=== PATIENT | female | born 1970 | race Native Hawaiian/Other Pacific Islander ===

== ENCOUNTER 2017-05-19 22:23 | Observation (INO) | payer MEDICAID, OTHER ==
--- NOTE | 2017-05-19 22:58 | ED PDOC ---
Arrival/HPI <Leif Arthur - Last Filed: 05/20/17 00:50> <Barndyn Vázquez - Last Filed: 05/20/17 01:14> - General Chief Complaint: Chest Pain Time Seen by Provider: 05/19/17 22:24 - History of Present Illness Narrative History of Present Illness (Text): 47 year old obese female with a past medical history of borderline diabetes and untreated hypertension who presents with 1 day of left sided chest pain and radiation down the left arm. She states at 1:00 PM she was sitting on the couch and developed some sharp chest pain that somewhat resolved after taking 3 baby aspirins; however, an hour or so later the chest pain became more diffuse and heavy-like with radiation down the left arm with associated dyspnea, no nausea, vomiting, or diaphoresis. She further admits to occasions of shortness of breath lying flat. She admits to a family history significant for high blood pressure. She denies any tobacco use or illicit drug use, but admits to drinking socially. 05/19/17 22:55 (Brandyn Vázquez) Past Medical History - Provider Review Nursing Documentation Reviewed: Yes - Infectious Disease Hx of Infectious Diseases: None - Tetanus Immunization Tetanus Immunization: Unknown - Past Medical History Past Medical History: No Previous - Cardiac Hx Cardiac Disorders: No - Pulmonary Hx Respiratory Disorders: No - Neurological Hx Neurological Disorder: No - HEENT Hx HEENT Disorder: No - Renal Hx Renal Disorder: No - Endocrine/Metabolic Hx Endocrine Disorders: No (GESTATIONAL DIABETES) - Hematological/Oncological Hx Blood Transfusions: No Hx Blood Transfusion Reaction: No - Integumentary Hx Dermatological Disorder: Yes (ACNE) - Musculoskeletal/Rheumatological Hx Musculoskeletal Disorders: Yes (RIGHT KNEE SURGERY TORN MENISCUS) - Gastrointestinal Hx Gastrointestinal Disorders: Yes (TONSILLECTOMY) - Genitourinary/Gynecological Hx Genitourinary Disorders: No - Psychiatric Hx Emotional Abuse: No Hx Physical Abuse: No Hx Substance Use: No - Past Surgical History Past Surgical History: Non-Contributing - Surgical History Hx Orthopedic Surgery: Yes (RIGHT TORN MENISCUS) - Anesthesia Hx Anesthesia Reactions: No Hx Malignant Hyperthermia: No - Suicidal Assessment Feels Threatened In Home Enviroment: No <Brandyn Vázquez - Last Filed: 05/20/17 01:14> Family/Social History - Physician Review Nursing Documentation Reviewed: Yes Family/Social History: Hypertension Smoking Status: Never Smoked Hx Alcohol Use: No Hx Substance Use: No <Brandyn Vázquez - Last Filed: 05/20/17 01:14> Allergies/Home Meds <JersonLeif - Last Filed: 05/20/17 00:50> <Brandyn Vázquez - Last Filed: 05/20/17 01:14> Allergies/Adverse Reactions: Allergies No Known Allergies Allergy (Verified 10/07/13 22:49) Home Medications: Home Meds Medication Instructions Recorded Confirmed No Known Home Med [No Known Home 10/07/13 05/19/17 Med] Review of Systems - Review of Systems Constitutional: Normal. absent: Fatigue, Weight Change, Fevers Eyes: absent: Vision Changes, Photophobia, Eye Pain ENT: absent: Hearing Changes, Tinnitus Respiratory: SOB. absent: Cough, Sputum, Wheezing Cardiovascular: Chest Pain, Orthopnea. absent: Palpitations, Edema, Calf Pain, [place] Gastrointestinal: Normal. absent: Abdominal Pain, Nausea, Vomiting Genitourinary Female: absent: Dysuria, Frequency, Hematuria Musculoskeletal: absent: Back Pain, Neck Pain, Joint Swelling Skin: absent: Rash, Skin Lesions, Laceration Neurological: absent: Headache, Dizziness, Focal Weakness Endocrine: absent: Diaphoresis, Polydipsia Hemo/Lymphatic: absent: Easy Bleeding, Easy Bruising Psychiatric: absent: Anxiety, Depression <Brandyn Vázquez - Last Filed: 05/20/17 01:14> Physical Exam Temperature: Afebrile Blood Pressure: Hypertensive Pulse: Regular Respiratory Rate: Normal Appearance: Positive for: Well-Appearing, Non-Toxic Pain Distress: Mild Mental Status: Positive for: Alert and Oriented X 3 - Systems Exam Head: Present: Atraumatic, Normocephalic Pupils: Present: PERRL Extroacular Muscles: Present: EOMI Conjunctiva: Present: Normal Mouth: Present: Moist Mucous Membranes Pharnyx: Present: Normal. No: ERYTHEMA, EXUDATE Neck: Present: Normal Range of Motion. No: JVD, Lymphadenopathy, Bruit Respiratory/Chest: Present: Clear to Auscultation. No: Good Air Exchange, Respiratory Distress, Accessory Muscle Use Cardiovascular: Present: Regular Rate and Rhythm, Murmurs, Normal S1, S2 Abdomen: Present: Normal Bowel Sounds. No: Tenderness, Distention, Peritoneal Signs Back: Present: Normal Inspection. No: CVA Tenderness Upper Extremity: Present: Normal Inspection. No: Cyanosis, Edema Lower Extremity: Present: Normal Inspection. No: Edema, CALF TENDERNESS, Cata' s Sign Neurological: Present: CN II-XII Intact, Speech Normal, Motor Func Grossly Intact Skin: Present: Warm, Dry, Normal Color Psychiatric: Present: Alert, Oriented x 3, Normal Insight <Brandyn Vázquez - Last Filed: 05/20/17 01:14> Vital Signs Temp Pulse Resp BP Pulse Ox 05/19/17 22:55 97.8 F 60 18 137/81 100 Medical Decision Making - RAD Interpretation Drying Machine Back Tender: ED Physician <Leif Arthur - Last Filed: 05/20/17 00:50> <Brandyn Vázquez - Last Filed: 05/20/17 01:14> ED Course and Treatment: Patient was seen and evaluated with the medical center director. Agree with HPI, clinical findings, treatment plan. 05/20/17 00:38 Case d/w medical center director and hospital MD .Accepts to the hospitalist service. (Leif Arthur) CBC, CMP, Cardiac enzymes, EKG were negative for ACS. 05/20/17 00:21 (Brandyn Vázquez) - Lab Interpretations Lab Results: 05/19/17 23:35 05/19/17 23:35 Lab Results 05/19/17 23:35: Sodium 139, Potassium 3.6, Chloride 103, Carbon Dioxide 23, Anion Gap 17, BUN 23 H, Creatinine 0.7, Est GFR ( Amer) > 60, Est GFR ( Non-Af Amer) > 60, Random Glucose 128 H, Calcium 9.1, Total Bilirubin 0.2, AST 23, ALT 21, Alkaline Phosphatase 48, Lactate Dehydrogenase 381, Total Creatine Kinase 100, Troponin I < 0.01, Total Protein 7.5, Albumin 4.1, Globulin 3.4, Albumin/Globulin Ratio 1.2 05/19/17 23:35: WBC 8.4, RBC 4.58, Hgb 10.4 L, Hct 33.0 L, MCV 72.1 L, MCH 22.7 L, MCHC 31.5, RDW 17.0 H, Plt Count 296, MPV 9.2, Gran % 56.0, Lymph % (Auto) 31.3, [place] % (Auto) 6.3 H, Eos % (Auto) 5.6 H, Baso % (Auto) 0.8, Gran # 4.67, Lymph # 2.6, [place] # 0.5, Eos # 0.5, Baso # 0.07 - RAD Interpretation Narrative RAD Interpretations (Text): 05/20/17 00:40 CXR- No acute process (Leif Arthur) Radiology Orders: 05/20/17 00:16 CXR [CHEST PORTABLE] [RAD] Stat - PA / POOL TABLE OPERATOR / Resident Statement MD/DO has reviewed & agrees with the documentation as recorded. MD/DO has examined the patient and agrees with the treatment plan. <Leif Arthur - Last Filed: 05/20/17 00:50> Disposition/Present on Arrival - Present on Arrival Any Indicators Present on Arrival: No History of DVT/PE: No History of Uncontrolled Diabetes: No Urinary Catheter: No History of Decub. Ulcer: No History Surgical Site Infection Following: None - Disposition Have Diagnosis and Disposition been Completed?: Yes Disposition Time: 00:38 Patient Plan: Observation <Leif Arthur - Last Filed: 05/20/17 00:50> - Present on Arrival History of DVT/PE: No History of Uncontrolled Diabetes: No Urinary Catheter: No History of Decub. Ulcer: No History Surgical Site Infection Following: None - Disposition Have Diagnosis and Disposition been Completed?: Yes <Brandyn Vázquez - Last Filed: 05/20/17 01:14> - Disposition Diagnosis: Chest pain Disposition: HOSPITALIZED Condition: GOOD Discharge Instructions (ExitCare): Chest Pain (ED) Forms: [employer] (Bhutanese)
[2017-05-19 23:52] LABS: BASO # 0.07 K/mm3 (0.0-2.0); BASO % 0.8 % (0.0-3.0); EOS # 0.5 (0.0-0.7); EOS % 5.6 % (1.5-5.0); GRAN # 4.67 (1.4-6.5); LYMPH # 2.6 (1.2-3.4); LYMPH % 31.3 % (22.0-35.0); MEAN CELL VOLUME 72.1 fl (80.0-105.0); MEAN CORPUSCULAR HEMOGLOBIN 22.7 pg (25.0-35.0); MEAN CORPUSCULAR HGB CONC 31.5 g/dl (31.0-37.0); MEAN PLATELET VOLUME 9.2 fl (7.0-11.0); MONO # 0.5 (0.1-0.6); MONO % 6.3 % (1.0-6.0); WHITE BLOOD COUNT 8.4 10^3/ul (4.5-11.0)
[2017-05-20 00:06] LABS: ALB/GLOB RATIO 1.2 (1.1-1.8); ALKALINE PHOSPHATASE 48 U/L (38-126); ALT/SGPT 21 U/L (7-56); AST/SGOT 23 U/L (14-36); BILIRUBIN,TOTAL 0.2 mg/dL (0.2-1.3); BLOOD UREA NITROGEN 23 mg/dL (7-21); CALCIUM 9.1 mg/dL (8.4-10.5); CARBON DIOXIDE 23 mmol/L (21-33); CHLORIDE 103 mmol/L (98-107); GFR AFRICAN-AMERICAN > 60; GLUCOSE,RANDOM 128 mg/dL (70-110); POTASSIUM 3.6 mmol/L (3.6-5.0); SODIUM 139 mmol/L (132-148); TOTAL PROTEIN 7.5 g/dL (5.8-8.3)
[2017-05-20 00:19] LABS: TROPONIN I < 0.01 ng/mL
[2017-05-20 04:04] LABS: BASO # 0.06 K/mm3 (0.0-2.0); BASO % 0.7 % (0.0-3.0); EOS # 0.5 (0.0-0.7); GRAN # 4.41 (1.4-6.5); GRAN % 53.6 % (50.0-68.0); HEMATOCRIT 32.2 % (36.0-48.0); LYMPH # 2.7 (1.2-3.4); MEAN CORPUSCULAR HEMOGLOBIN 22.8 pg (25.0-35.0); MEAN CORPUSCULAR HGB CONC 31.7 g/dl (31.0-37.0); MEAN PLATELET VOLUME 8.6 fl (7.0-11.0); MONO # 0.6 (0.1-0.6); MONO % 6.7 % (1.0-6.0); RED CELL DISTRIBUTION WIDTH 16.9 % (11.5-14.5); WHITE BLOOD COUNT 8.2 10^3/ul (4.5-11.0)
[2017-05-20 04:11] VITALS: BMI 34.5
[2017-05-20 04:20] LABS: ALB/GLOB RATIO 1.2 (1.1-1.8); ALKALINE PHOSPHATASE 46 U/L (38-126); AST/SGOT 23 U/L (14-36); BILIRUBIN,TOTAL 0.4 mg/dL (0.2-1.3); BLOOD UREA NITROGEN 20 mg/dL (7-21); CARBON DIOXIDE 24 mmol/L (21-33); CHLORIDE 104 mmol/L (98-107); CHOLESTEROL 104 mg/dL (130-200); GFR AFRICAN-AMERICAN > 60; GLUCOSE,RANDOM 107 mg/dL (70-110); PHOSPHOROUS 4.1 mg/dL (2.5-4.5); TOTAL PROTEIN 7.1 g/dL (5.8-8.3)
[2017-05-20 04:21] LABS: ALT/SGPT 25 U/L (7-56); CALCIUM 8.9 mg/dL (8.4-10.5); MAGNESIUM 1.9 mg/dL (1.7-2.2); SODIUM 138 mmol/L (132-148)
--- NOTE | 2017-05-20 04:34 | CP.PCM.HP ---
<Alejandro Bowens - Last Filed: 05/20/17 04:42> History of Present Illness - History of Present Illness History of Present Illness: H/P For IM - TKS DO, PGY-1 CC: CP HPI: 47 F w no PMHx presents with 9 hour duration of sharp, left-sided, 5/10 chest pain radiating to her shoulder and down her arm, alleviated by laying away from her left side, exacerbated by pressure on the left side of her chest, with no associated symptoms. Patient states the pain was not subsiding, which scared her and her , thus they came to the ER. She states that a brother and her grandfather of AMI's. Pt denies ever having a cath, stress test, or an ECHO. No further complaints. Pt denies f/ch/sob/n/v/d/dysuria/frequency/urgency/hematuria/hematochezia/ hematemesis PSHx: Meniscal repair PMHx: None All: NKDA SocHx: Pt denies tobacco, etoh, illicits Hosp: Abd pain several years ago FamHx: CA, HF, RI Meds: Pt denies ROS: Constitutional: pt denies fever, chills, generalized weakness ENT: pt denies dysphagia, otalgia, hearing deficit, rhinorrhea Eyes: pt denies sudden loss of vision, diplopia, blurred vision MSK: pt denies muscle stiffness, joint pain, extremity cramping Cardio: +see hpi Pulm: pt denies cough, hemoptysis, wheeze GI: pt denies loss of appetite, abdominal pain, constipation, melena, n/v/d : pt denies burning on urination, urinary frequency, hematuria, urinary urgency Neuro: pt denies paresis, paresthesia, dizziness, reis, numbness, tingling Derm: pt denies skin changes, lesions, nail changes Endo: pt denies intolerance to heat/cold, diaphoresis, night sweats, polydipsia Psych: pt denies anxiety, depression, mood changes Present on Admission - Present on Admission Any Indicators Present on Admission: No Past Patient History - Infectious Disease Hx of Infectious Diseases: None - Tetanus Immunizations Tetanus Immunization: Unknown - Past Social History Smoking Status: Never Smoked - CARDIAC Hx Cardiac Disorders: No - PULMONARY Hx Respiratory Disorders: No - NEUROLOGICAL Hx Neurological Disorder: No - HEENT Hx HEENT Problems: No - RENAL Hx Chronic Kidney Disease: No - ENDOCRINE/METABOLIC Hx Endocrine Disorders: Yes Other/Comment: Gestational diabetes - HEMATOLOGICAL/ONCOLOGICAL Hx Blood Disorders: No - INTEGUMENTARY Hx Dermatological Problems: No - MUSCULOSKELETAL/RHEUMATOLOGICAL Hx Musculoskeletal Disorders: Yes Hx Falls: No Other/Comment: Right knee SX. torn meniscus - GASTROINTESTINAL Hx Gastrointestinal Disorders: No - GENITOURINARY/GYNECOLOGICAL Hx Genitourinary Disorders: Yes Hx Urinary Tract Infection: Yes - PSYCHIATRIC Hx Psychophysiologic Disorder: No Hx Substance Use: No - SURGICAL HISTORY Hx Surgeries: Yes Hx Appendectomy: Yes Other/Comment: Right knee SX. torn meniscus, tonsillectomy. - ANESTHESIA Hx Anesthesia Reactions: No Hx Malignant Hyperthermia: No Meds Allergies/Adverse Reactions: Allergies Allergy/AdvReac Type Severity Reaction Status Date / Time No Known Allergies Allergy Verified 10/07/13 22:49 Physical Exam - Additional Findings Additional findings: Phys Exam: VS as below Constitutional: +obese female; a&o x 4, nad Head and Neck: neck supple, no jvd, trachea midline, carotid midline, no cervical/head mass Eyes: ajit, nonicteric sclera, eom intact ENT: auditory acuity grossly intact, throat not congested, no nasal deformity Cardio: +CW pain completely reproducible with moderate palpation of L side of chest; rrr, no m/r/g, no carotid bruit, nml s1, s2 Pulm: no accessory muscle use, equal nml breath sounds bilaterally, ctab Abd: s/nt/nd, nbs x 4 q, no palpable masses Derm: no rashes, no ulcers, no lesions Extr: no edema, no cyanosis, no calf tenderness, no lesions, no varicosities Neuro: cn II-XII grossly intact, ue and le 5/5 muscle strength bilaterally, no los ue, le bilaterally and core Results - Vital Signs Recent Vital Signs: Last Vital Signs Temp 97.9 F 05/20/17 02:49 Pulse 66 05/20/17 02:49 Resp 20 05/20/17 02:49 BP 121/67 05/20/17 02:49 Pulse Ox 98 05/20/17 01:37 - Labs Result Diagrams: 05/20/17 03:45 05/20/17 03:45 Labs: Laboratory Results - last 24 hr 05/19/17 05/19/17 05/20/17 23:35 23:35 03:45 WBC 8.4 8.2 RBC 4.58 4.47 Hgb 10.4 L 10.2 L Hct 33.0 L 32.2 L MCV 72.1 L 72.0 L MCH 22.7 L 22.8 L MCHC 31.5 31.7 RDW 17.0 H 16.9 H Plt Count 296 257 MPV 9.2 8.6 Gran % 56.0 53.6 Lymph % (Auto) 31.3 33.0 [place] % (Auto) 6.3 H 6.7 H Eos % (Auto) 5.6 H 6.0 H Baso % (Auto) 0.8 0.7 Gran # 4.67 4.41 Lymph # 2.6 2.7 [place] # 0.5 0.6 Eos # 0.5 0.5 Baso # 0.07 0.06 Sodium 139 Potassium 3.6 Chloride 103 Carbon Dioxide 23 Anion Gap 17 BUN 23 H Creatinine 0.7 Est GFR ( Amer) > 60 Est GFR (Non-Af Amer) > 60 Random Glucose 128 H Calcium 9.1 Phosphorus Magnesium Total Bilirubin 0.2 AST 23 ALT 21 Alkaline Phosphatase 48 Lactate Dehydrogenase 381 Total Creatine Kinase 100 Troponin I < 0.01 Total Protein 7.5 Albumin 4.1 Globulin 3.4 Albumin/Globulin Ratio 1.2 Triglycerides Cholesterol HDL Cholesterol 05/20/17 03:45 WBC RBC Hgb Hct MCV MCH MCHC RDW Plt Count MPV Gran % Lymph % (Auto) [place] % (Auto) Eos % (Auto) Baso % (Auto) Gran # Lymph # [place] # Eos # Baso # Sodium 138 Potassium 4.0 Chloride 104 Carbon Dioxide 24 Anion Gap 14 BUN 20 Creatinine 0.8 Est GFR ( Amer) > 60 Est GFR (Non-Af Amer) > 60 Random Glucose 107 Calcium 8.9 Phosphorus 4.1 Magnesium 1.9 Total Bilirubin 0.4 AST 23 ALT 25 Alkaline Phosphatase 46 Lactate Dehydrogenase 368 Total Creatine Kinase 92 Troponin I Total Protein 7.1 Albumin 3.9 Globulin 3.2 Albumin/Globulin Ratio 1.2 Triglycerides 85 Cholesterol 104 L HDL Cholesterol 37 Assessment & Plan - Assessment and Plan (Free Text) Assessment: A/P 47 F with mechanically reproducible chest pain Chest Pain likely 2/2 MSK Pain. R/o ACS - TSH, Lipid profile, A1C - Cardiac ISOs, EKGs - trend - AM Labs: CBC, CMP, Mg, Phos - ASA 81 Daily - Toradol for pain stat Obesity - Advise on weight loss Hx/O GUILLERMO - Pt states that she used to have a CPAP machine, but threw it out - Advised on importance of restarting CPAP PPXS - SCD/Protonix - Woody Score of 1 <Merle Tao - Last Filed: 05/20/17 06:03> Results - Vital Signs Recent Vital Signs: Last Vital Signs Temp 97.9 F 05/20/17 02:49 Pulse 57 L 05/20/17 05:42 Resp 20 05/20/17 02:49 BP 121/67 05/20/17 02:49 Pulse Ox 98 05/20/17 01:37 - Labs Result Diagrams: 05/20/17 03:45 05/20/17 03:45 Labs: Laboratory Results - last 24 hr 05/20/17 05/20/17 05/20/17 03:45 03:45 03:45 WBC 8.2 RBC 4.47 Hgb 10.2 L Hct 32.2 L MCV 72.0 L MCH 22.8 L MCHC 31.7 RDW 16.9 H Plt Count 257 MPV 8.6 Gran % 53.6 Lymph % (Auto) 33.0 [place] % (Auto) 6.7 H Eos % (Auto) 6.0 H Baso % (Auto) 0.7 Gran # 4.41 Lymph # 2.7 [place] # 0.6 Eos # 0.5 Baso # 0.06 Sodium 138 Potassium 4.0 Chloride 104 Carbon Dioxide 24 Anion Gap 14 BUN 20 Creatinine 0.8 Est GFR ( Amer) > 60 Est GFR (Non-Af Amer) > 60 Random Glucose 107 Calcium 8.9 Phosphorus 4.1 Magnesium 1.9 Total Bilirubin 0.4 AST 23 ALT 25 Alkaline Phosphatase 46 Lactate Dehydrogenase 368 Total Creatine Kinase 92 Troponin I < 0.01 Total Protein 7.1 Albumin 3.9 Globulin 3.2 Albumin/Globulin Ratio 1.2 Triglycerides 85 Cholesterol 104 L LDL Cholesterol Direct 58 HDL Cholesterol 37 TSH 3rd Generation 2.94 Attending/Attestation - Attestation I have personally seen and examined this patient.: Yes I have fully participated in the care of the patient.: Yes I have reviewed all pertinent clinical information: Yes Notes (Text): 05/20/17 05:58 Patient was seen when she was in ER. Agree with history, physical examination, assessment and plan. Following are my impressions:Chest pain, history GUILLERMO, obesity, history borderline DM, history appendectomy, history of surgery for right knee meniscus, history of tonsillectomy, history of smoking , history of headache, history of seasonal allergies, family history of CHF, (MGM),RI(brother at age 30 years),ovarian cancer(mother), brain cancer(Sister), hypertension(multiple family members.
[2017-05-20 04:41] LABS: TROPONIN I < 0.01 ng/mL
[2017-05-20] MEDS: Sodium Chloride 0.9% 500 ML IV SCH ×2 (05:58→12:52)
[2017-05-20] MEDS ORDERED: Pantoprazole 40 mg EC Tab PO SCH (06:00)
[2017-05-20 06:16] VITALS: O2SAT 99
[2017-05-20 08:48] LABS: TROPONIN I < 0.01 ng/mL
[2017-05-20 12:30] VITALS: BP 114/75; RESP 18; TEMP 98.1
--- NOTE | 2017-05-20 13:07 | RAD ---
HISTORY: chest pain COMPARISON: 11/14/2015 FINDINGS: LUNGS: Low-normal lung volumes -not previously present The right hilar soft tissue fullness currently noted may be due to crowding of vessels given the shallow lung volumes. Intrinsic right hilar pathology not excluded PLEURA: No significant pleural effusion identified, no pneumothorax apparent. CARDIOVASCULAR: Mild cardiomegaly - left ventricular mild enlargement inferred OSSEOUS STRUCTURES: No significant abnormalities. VISUALIZED UPPER ABDOMEN: Normal. OTHER FINDINGS: None. IMPRESSION: No consolidative infiltrate . Interval increased soft tissue right hilar fullness in indeterminate and possibly due to crowding with shallow current lung volumes. Consider repeat PA chest x-ray with greater inspiration or CT chest with contrast enhancement
--- NOTE | 2017-05-20 13:17 | CON ---
DATE: 05/20/2017 REQUESTING PHYSICIAN: Dr. Dunn. REASON FOR CONSULTATION: Chest pain. HISTORY OF PRESENT ILLNESS: This is a 47-year-old woman who presented to the emergency room last evening with left-sided chest discomfort. She describes it as a sharp sensation which radiated down her left arm. She was sitting and resting at that time. Her pain improved with the change in position. There is a family history of premature heart disease and she became concerned and presented to the emergency room. Her initial blood work and electrocardiogram were unremarkable. She denies any prior cardiac history. She is not hypertensive or diabetic. She does not smoke. There was a family history of premature heart disease. She states that her brother suffered myocardial infarction at the age of 30 and her grand father also had myocardial infarction at young age. She believes her cholesterol is normal. She is not diabetic. PAST MEDICAL HISTORY: Her past history is notable for prior arthroscopic knee surgery. She is otherwise healthy. She had an appendectomy and tonsillectomy in the past. MEDICATIONS: None. ALLERGIES: NONE. SOCIAL HISTORY: She does not smoke or drink. FAMILY HISTORY: Mother from cancer. Father from gunshot wound. Rest of the family history is as noted. REVIEW OF SYSTEMS: A 10-point review of systems is otherwise unremarkable. PHYSICAL EXAMINATION GENERAL: She is a middle aged woman who appears comfortable at the present time. VITAL SIGNS: Her blood pressure is 114/70 with pulse of 60 in sinus, respirations are 14. She is afebrile. HEENT: Normocephalic and atraumatic. NECK: No JVD noted. CHEST: Clear to auscultation and percussion. HEART: PMI in normal position. No pathological gallops noted. ABDOMEN: Soft and nontender. Normoactive bowel sounds. EXTREMITIES: No clubbing, cyanosis, or edema. SKIN: Warm and dry. PSYCHIATRIC: Normal mood and affect. NEUROLOGIC: Alert and oriented x3. No gross motor or sensory deficits appreciable. LABORATORY DATA: Three sets of cardiac enzymes are negative. Potassium 4.0, BUN and creatinine 20 and 0.8. White count 8.2, hemoglobin and hematocrit 10.2 and 32.2 with an MCV of 72, platelet count is 257,000. Electrocardiogram reveals sinus rhythm with no acute abnormalities. Chest x-ray reveals normal cardiac silhouette with clear lung inman. IMPRESSION: 1. Chest pain, appears typical and more likely musculoskeletal rather than cardiac in nature. 2. Microcytic anemia, possible iron deficiency, should have further evaluation. 3. Family history of premature heart disease, but no clear evidence of heart disease herself. RECOMMENDATIONS: From cardiac standpoint, she appears stable for discharge home at this time. Now, the patient's stress test should be considered. Thank you for this consultation. We will be happy to see in the future if needed. Alex Lopez MD
--- NOTE | 2017-05-20 13:40 | CP.PCM.DIS ---
<Eliu Duarte - Last Filed: 05/20/17 17:36> Provider - Provider Date of Admission: 05/20/17 00:39 Attending physician: Puneet Medeiros MD Time Spent in preparation of Discharge (in minutes): 45 Hospital Course - Lab Results Lab Results: Most Recent Lab Values WBC 8.2 10^3/ul (4.5-11.0) 05/20/17 03:45 RBC 4.47 10^6/uL (3.5-6.1) 05/20/17 03:45 Hgb 10.2 g/dL (12.0-16.0) L 05/20/17 03:45 Hct 32.2 % (36.0-48.0) L 05/20/17 03:45 MCV 72.0 fl (80.0-105.0) L 05/20/17 03:45 MCH 22.8 pg (25.0-35.0) L 05/20/17 03:45 MCHC 31.7 g/dl (31.0-37.0) 05/20/17 03:45 RDW 16.9 % (11.5-14.5) H 05/20/17 03:45 Plt Count 257 10^3/uL (120.0-450.0) 05/20/17 03:45 MPV 8.6 fl (7.0-11.0) 05/20/17 03:45 Gran % 53.6 % (50.0-68.0) 05/20/17 03:45 Lymph % (Auto) 33.0 % (22.0-35.0) 05/20/17 03:45 [place] % (Auto) 6.7 % (1.0-6.0) H 05/20/17 03:45 Eos % (Auto) 6.0 % (1.5-5.0) H 05/20/17 03:45 Baso % (Auto) 0.7 % (0.0-3.0) 05/20/17 03:45 Gran # 4.41 (1.4-6.5) 05/20/17 03:45 Lymph # 2.7 (1.2-3.4) 05/20/17 03:45 [place] # 0.6 (0.1-0.6) 05/20/17 03:45 Eos # 0.5 (0.0-0.7) 05/20/17 03:45 Baso # 0.06 K/mm3 (0.0-2.0) 05/20/17 03:45 Sodium 138 mmol/L (132-148) 05/20/17 03:45 Potassium 4.0 mmol/L (3.6-5.0) 05/20/17 03:45 Chloride 104 mmol/L (98-107) 05/20/17 03:45 Carbon Dioxide 24 mmol/L (21-33) 05/20/17 03:45 Anion Gap 14 (10-20) 05/20/17 03:45 BUN 20 mg/dL (7-21) 05/20/17 03:45 Creatinine 0.8 mg/dL (0.7-1.2) 05/20/17 03:45 Est GFR ( Amer) > 60 05/20/17 03:45 Est GFR (Non-Af Amer) > 60 05/20/17 03:45 Random Glucose 107 mg/dL (70-110) 05/20/17 03:45 Hemoglobin A1c 6.0 % (4.2-6.5) 05/20/17 03:45 Calcium 8.9 mg/dL (8.4-10.5) 05/20/17 03:45 Phosphorus 4.1 mg/dL (2.5-4.5) 05/20/17 03:45 Magnesium 1.9 mg/dL (1.7-2.2) 05/20/17 03:45 Total Bilirubin 0.4 mg/dL (0.2-1.3) 05/20/17 03:45 AST 23 U/L (14-36) 05/20/17 03:45 ALT 25 U/L (7-56) 05/20/17 03:45 Alkaline Phosphatase 46 U/L (38-126) 05/20/17 03:45 Lactate Dehydrogenase 312 U/L (333-699) L 05/20/17 08:20 Total Creatine Kinase 87 U/L (35-230) 05/20/17 08:20 Troponin I < 0.01 ng/mL 05/20/17 08:20 Total Protein 7.1 g/dL (5.8-8.3) 05/20/17 03:45 Albumin 3.9 g/dL (3.0-4.8) 05/20/17 03:45 Globulin 3.2 gm/dL 05/20/17 03:45 Albumin/Globulin Ratio 1.2 (1.1-1.8) 05/20/17 03:45 Triglycerides 85 mg/dL (35-160) 05/20/17 03:45 Cholesterol 104 mg/dL (130-200) L 05/20/17 03:45 LDL Cholesterol Direct 58 mg/dL (0-129) 05/20/17 03:45 HDL Cholesterol 37 mg/dL (29-60) 05/20/17 03:45 TSH 3rd Generation 2.94 mIU/mL (0.46-4.68) 05/20/17 03:45 - Hospital Course Hospital Course: 47 F w no PMHx presents with 9 hour duration of sharp, left-sided, 5/10 chest pain radiating to her shoulder and down her arm, alleviated by laying away from her left side, exacerbated by pressure on the left side of her chest, with no associated symptoms. Patient states the pain was not subsiding, which scared her and her , thus they came to the ER. She states that a brother and her grandfather of AMI's. Pt denies ever having a cath, stress test, or an ECHO. The patient was admitted to rule out acute coronary syndrome. While admitted the patient had an EKG done that showed normal sinus rhythm, no axis deviation, and no acute ST-T changes. The patient was also seen by Cardiology while admitted. The patient had labs drawn including serial troponins.and lipid panel. The lipid panel showed cholesterol of 104, LDL 58, and HDL 37. The patient's lab work came back and showed her troponins were negative times 3. The patient was seen this morning no longer complaining of chest pain and in no acute distress. The patient was medically cleared to go home with the instructions to follow up with pmd and to have a outpatient stress test within one week of discharge. Discharge Exam - Eye Exam Eye Exam: EOMI, Normal appearance, PERRL. absent: Periorbital tenderness Pupil Exam: NORMAL ACCOMODATION, PERRL. absent: Irregular, Unequal - ENT Exam ENT Exam: Mucous Membranes Moist, Normal Oropharynx - Neck Exam Neck exam: Normal Inspection - Respiratory Exam Respiratory Exam: Clear to PA & Lateral, NORMAL BREATHING PATTERN, UNREMARKABLE. absent: Decreased Breath Sounds, Rales, Rhonchi - Cardiovascular Exam Cardiovascular Exam: REGULAR RHYTHM, RRR, +S1, +S2. absent: Gallop, Rubs - GI/Abdominal Exam GI & Abdominal Exam: Normal Bowel Sounds, Unremarkable. absent: Hypoactive Bowel Sounds, Organomegaly, Pulsatile Mass - Extremities Exam Extremities exam: normal inspection - Neurological Exam Neurological exam: Alert, CN II-XII Intact, Normal Gait, Oriented x3 - Psychiatric Exam Psychiatric exam: Normal Affect, Normal Mood - Skin Skin Exam: Dry, Intact Discharge Plan - Discharge Medications Prescriptions: Aspirin [Adult Low Dose Aspirin EC] 81 mg PO DAILY #30 tablet.dr - Follow Up Plan Condition: GOOD Disposition: HOME/ ROUTINE Instructions: Chest Pain (DC), Heart Healthy Diet (DC) Additional Instructions: 1.Patient advised to have Outpatient stress test to be done within a week of discharge. Patient to be called by Dr. Reyes's office to set up an appointment. 2.Patient advised to follow up with PMD within on week of discharge. 3.Patient advised to return to emergency department for any new or worsening symptoms. Referrals: Mark Reyes MD [Staff Provider] - <Puneet Medeiros - Last Filed: 05/21/17 14:02> Provider - Provider Date of Admission: 05/20/17 00:39 Attending physician: Puneet Medeiros MD Hospital Course - Lab Results Lab Results: Most Recent Lab Values WBC 8.2 10^3/ul (4.5-11.0) 05/20/17 03:45 RBC 4.47 10^6/uL (3.5-6.1) 05/20/17 03:45 Hgb 10.2 g/dL (12.0-16.0) L 05/20/17 03:45 Hct 32.2 % (36.0-48.0) L 05/20/17 03:45 MCV 72.0 fl (80.0-105.0) L 05/20/17 03:45 MCH 22.8 pg (25.0-35.0) L 05/20/17 03:45 MCHC 31.7 g/dl (31.0-37.0) 05/20/17 03:45 RDW 16.9 % (11.5-14.5) H 05/20/17 03:45 Plt Count 257 10^3/uL (120.0-450.0) 05/20/17 03:45 MPV 8.6 fl (7.0-11.0) 05/20/17 03:45 Gran % 53.6 % (50.0-68.0) 05/20/17 03:45 Lymph % (Auto) 33.0 % (22.0-35.0) 05/20/17 03:45 [place] % (Auto) 6.7 % (1.0-6.0) H 05/20/17 03:45 Eos % (Auto) 6.0 % (1.5-5.0) H 05/20/17 03:45 Baso % (Auto) 0.7 % (0.0-3.0) 05/20/17 03:45 Gran # 4.41 (1.4-6.5) 05/20/17 03:45 Lymph # 2.7 (1.2-3.4) 05/20/17 03:45 [place] # 0.6 (0.1-0.6) 05/20/17 03:45 Eos # 0.5 (0.0-0.7) 05/20/17 03:45 Baso # 0.06 K/mm3 (0.0-2.0) 05/20/17 03:45 Sodium 138 mmol/L (132-148) 05/20/17 03:45 Potassium 4.0 mmol/L (3.6-5.0) 05/20/17 03:45 Chloride 104 mmol/L (98-107) 05/20/17 03:45 Carbon Dioxide 24 mmol/L (21-33) 05/20/17 03:45 Anion Gap 14 (10-20) 05/20/17 03:45 BUN 20 mg/dL (7-21) 05/20/17 03:45 Creatinine 0.8 mg/dL (0.7-1.2) 05/20/17 03:45 Est GFR ( Amer) > 60 05/20/17 03:45 Est GFR (Non-Af Amer) > 60 05/20/17 03:45 Random Glucose 107 mg/dL (70-110) 05/20/17 03:45 Hemoglobin A1c 6.0 % (4.2-6.5) 05/20/17 03:45 Calcium 8.9 mg/dL (8.4-10.5) 05/20/17 03:45 Phosphorus 4.1 mg/dL (2.5-4.5) 05/20/17 03:45 Magnesium 1.9 mg/dL (1.7-2.2) 05/20/17 03:45 Total Bilirubin 0.4 mg/dL (0.2-1.3) 05/20/17 03:45 AST 23 U/L (14-36) 05/20/17 03:45 ALT 25 U/L (7-56) 05/20/17 03:45 Alkaline Phosphatase 46 U/L (38-126) 05/20/17 03:45 Lactate Dehydrogenase 318 U/L (333-699) L 05/20/17 14:00 Total Creatine Kinase 79 U/L (35-230) 05/20/17 14:00 Troponin I < 0.01 ng/mL 05/20/17 14:00 Total Protein 7.1 g/dL (5.8-8.3) 05/20/17 03:45 Albumin 3.9 g/dL (3.0-4.8) 05/20/17 03:45 Globulin 3.2 gm/dL 05/20/17 03:45 Albumin/Globulin Ratio 1.2 (1.1-1.8) 05/20/17 03:45 Triglycerides 85 mg/dL (35-160) 05/20/17 03:45 Cholesterol 104 mg/dL (130-200) L 05/20/17 03:45 LDL Cholesterol Direct 58 mg/dL (0-129) 05/20/17 03:45 HDL Cholesterol 37 mg/dL (29-60) 05/20/17 03:45 TSH 3rd Generation 2.94 mIU/mL (0.46-4.68) 05/20/17 03:45 Attending/Attestation - Attestation I have personally seen and examined this patient.: Yes I have fully participated in the care of the patient.: Yes I have reviewed all pertinent clinical information, including history, physical exam and plan: Yes Notes (Text): 05/21/17 13:56 Patient was seen and examined with medical radiation tech. Agreed with resident assessment and plan. 47 F with no significant PMH was admitted with atypical chest pain, has chest wall tenderness, EKG NSR, Telemetry was unremarkable, serial troponins were normal.Patient was evaluated by cardiology, no further inpatient work was recommended.Patient will be discharged home and will follow up with PCP and cardiology.She will have stress test as out patient. Management plan was discussed in detail with patient Education was provided.
[2017-05-20 14:29] LABS: TROPONIN I < 0.01 ng/mL
[2017-05-20 15:11] VITALS: PULSE 58
--- NOTE | 2017-05-21 02:33 | CARD ---
APPROVED REPORT EKG Measurement Heart [id number] <Conclusion> Sinus bradycardia with sinus arrhythmia Otherwise normal ECG
--- NOTE | 2017-05-22 12:05 | CARD ---
APPROVED REPORT EKG Measurement Heart [id number] <Conclusion> Normal sinus rhythm Normal ECG
== END 2017-05-20 16:22 | disposition home or self-care (01) ==
LOC: ED 22:23 → ERH 05-20 00:39 → 2RNO 05-20 01:58
PROVIDERS: ADMIT Internal Medicine; ATTEND Internal Medicine
DX: R07.89 Other chest pain (principal); G47.33 Obstructive sleep apnea (adult) (pediatric); D50.9 Iron deficiency anemia, unspecified; E66.9 Obesity, unspecified; Z68.33 Body mass index [BMI] 33.0-33.9, adult
CPT/HCPCS: 36415; 71010; 80053; 80061; 82550; 83036; 83615; 83735; 84100; 84443; 84484; 85025; 93005; 99285; G0378; J1885; J7040

== ENCOUNTER 2017-09-28 16:11 | Emergency (ER) | payer MEDICAID ==
[2017-09-28 16:38] VITALS: RESP 18; TEMP 98.9; BMI 32.5
--- NOTE | 2017-09-28 18:30 | RAD ---
HISTORY: cough x 4 weeks COMPARISON: 05/20/2017 TECHNIQUE: Chest PA and lateral FINDINGS: LUNGS: No active pulmonary disease. PLEURA: No significant pleural effusion identified. No pneumothorax apparent. CARDIOVASCULAR: Normal. OSSEOUS STRUCTURES: No significant abnormalities. VISUALIZED UPPER ABDOMEN: Normal. OTHER FINDINGS: None. IMPRESSION: No active disease. No significant interval change compared to the prior examination(s).
--- NOTE | 2017-09-28 19:08 | ED PDOC ---
Arrival/HPI - General Chief Complaint: Cough, Cold, Congestion Time Seen by Provider: 09/28/17 16:50 Historian: Patient - History of Present Illness Narrative History of Present Illness (Text): 09/28/17 19:19 47yr old female presents today with intermittent cough x 4 weeks. Pt c/o fever/ chills since last night. c/o continued dry cough. + nasal congestion. no sore throat or ear pain. no vomiting/diarrhea. + sick contacts. denies dizziness or weakness. no chest pain or shortness of breath. no other complaints. Time/Duration: > week Symptom Onset: Gradual Symptom Course: Worsening Quality: Aching Severity Level: 4 Past Medical History - Provider Review Nursing Documentation Reviewed: Yes - Travel History Have you recently traveled outside [place] w/in the past 3 mons?: No - Infectious Disease Hx of Infectious Diseases: None - Tetanus Immunization Tetanus Immunization: Unknown - Past Medical History Past Medical History: No Previous - Cardiac Hx Cardiac Disorders: No - Pulmonary Hx Respiratory Disorders: No - Neurological Hx Neurological Disorder: No - HEENT Hx HEENT Disorder: No - Renal Hx Renal Disorder: No - Endocrine/Metabolic Hx Endocrine Disorders: Yes Other/Comment: Gestational diabetes - Hematological/Oncological Hx Blood Disorders: No - Integumentary Hx Dermatological Disorder: No - Musculoskeletal/Rheumatological Hx Musculoskeletal Disorders: Yes Hx Falls: No Other/Comment: Right knee SX. torn meniscus - Gastrointestinal Hx Gastrointestinal Disorders: No - Genitourinary/Gynecological Hx Genitourinary Disorders: Yes Hx Urinary Tract Infection: Yes - Psychiatric Hx Psychophysiologic Disorder: No Hx Substance Use: No - Past Surgical History Past Surgical History: Non-Contributing - Surgical History Hx Appendectomy: Yes Other/Comment: Right knee SX. torn meniscus, tonsillectomy. - Anesthesia Hx Anesthesia Reactions: No Hx Malignant Hyperthermia: No - Suicidal Assessment Feels Threatened In Home Enviroment: No Family/Social History - Physician Review Nursing Documentation Reviewed: Yes Family/Social History: Unknown Family HX Smoking Status: Never Smoked Hx Alcohol Use: No Hx Substance Use: No Allergies/Home Meds Allergies/Adverse Reactions: Allergies No Known Allergies Allergy (Verified 09/28/17 16:38) Review of Systems - Review of Systems Constitutional: Fatigue, Fevers Respiratory: Cough. absent: SOB Cardiovascular: absent: Chest Pain, Palpitations Gastrointestinal: absent: Abdominal Pain, Nausea, Vomiting Genitourinary Female: absent: Dysuria Musculoskeletal: Other (bodyaches). absent: Arthralgias Skin: absent: Rash, Pruritis Neurological: Headache. absent: Dizziness Psychiatric: absent: Anxiety, Depression Physical Exam Vital Signs Reviewed: Yes Vital Signs Temp Pulse Resp BP Pulse Ox 09/28/17 16:36 98.9 F 90 18 123/87 98 Temperature: Afebrile Blood Pressure: Normal Pulse: Regular Respiratory Rate: Normal Appearance: Positive for: Well-Appearing, Non-Toxic, Comfortable Pain Distress: None Mental Status: Positive for: Alert and Oriented X 3 - Systems Exam Head: Present: Atraumatic Ears: Present: Normal, NORMAL TM Mouth: Present: Moist Mucous Membranes Pharnyx: Present: Normal. No: ERYTHEMA, EXUDATE, TONSILS ENLARGED, Peritonsilar Swelling, Uvular Deviation Nose (External): Present: Atraumatic Nose (Internal): Present: Normal Inspection Neck: Present: Normal Range of Motion, Trachea Midline. No: Lymphadenopathy Respiratory/Chest: Present: Clear to Auscultation, Good Air Exchange. No: Respiratory Distress, Accessory Muscle Use, Wheezes, Rhonchi, Tachypneic Cardiovascular: Present: Regular Rate and Rhythm, Normal S1, S2. No: Murmurs Abdomen: No: Tenderness Neurological: Present: GCS=15, Speech Normal Skin: Present: Warm, Dry, Normal Color. No: Rashes Psychiatric: Present: Alert, Oriented x 3 Medical Decision Making ED Course and Treatment: 09/28/17 19:21 Patient is nontoxic well-appearing. C/o flu-like symptoms. tylenol PO rapid flu; + flu Tamiflu po cxr; no infiltrate or effusion Patient reassessment: Pt feeling better; vitals stable. discussed all results with patient. I advised follow up with primary care physician within the next 2 days. I advised increase fluids and return if symptoms worsen persist or if new symptoms develop Patient verbalizes understanding of discharge instructions and need for immediate followup. all aspects of this case were discussed the attending of record. IMPRESSION; Influenza Motrin one tablet every 6 hours as needed for pain Tamiflu: 1 capsule twice daily 5 days zithromax daily x 4 days. Increase fluids Followup with primary care physician the next 2 days Return if symptoms worsen persist or if new symptoms develop: Continued high fevers, dizziness, weakness, chest pain or shortness of breath vomiting/diarrhea , or if any other concerning symptoms develop Reassessment Condition: Re-examined, Improved - Lab Interpretations Lab Results: Lab Results 09/28/17 17:05: Influenza Typ A,B (EIA) Pos for influenza a H - RAD Interpretation Radiology Orders: 09/28/17 17:55 CHEST TWO VIEWS (PA/LAT) [RAD] Stat - Medication Orders Current Medication Orders: Discontinued Medications Acetaminophen (Tylenol 325mg Tab) 975 mg PO STAT STA Stop: 09/28/17 16:51 Last Admin: 09/28/17 16:59 Dose: 975 mg MAR Pain/Vitals Document 09/28/17 16:59 GMD (Rec: 09/28/17 16:59 GMD [id number]) Pain Reassessment Is This A Pain ReAssessment? No Azithromycin (Zithromax) 500 mg PO STAT STA PRN Reason: Protocol Stop: 09/28/17 18:59 Last Admin: 09/28/17 19:03 Dose: 500 mg Oseltamivir Phosphate (Tamiflu Cap) 75 mg PO STAT STA PRN Reason: Protocol Stop: 09/28/17 17:56 Last Admin: 09/28/17 18:26 Dose: 75 mg Disposition/Present on Arrival - Present on Arrival Any Indicators Present on Arrival: No History of DVT/PE: No History of Uncontrolled Diabetes: No Urinary Catheter: No History of Decub. Ulcer: No History Surgical Site Infection Following: None - Disposition Have Diagnosis and Disposition been Completed?: Yes Diagnosis: Influenza Disposition: HOME/ ROUTINE Disposition Time: 19:05 Patient Plan: Discharge Condition: GOOD Discharge Instructions (ExitCare): Influenza (ED), Acute Cough (ED) Additional Instructions: Motrin one tablet every 6 hours as needed for pain/fever reduction Tamiflu: 1 capsule twice daily 5 days zithromax; daily x 4 days Increase fluids Followup with primary care physician the next 2 days Return if symptoms worsen persist or if new symptoms develop: Continued high fevers, dizziness, weakness, chest pain or shortness of breath vomiting/diarrhea , or if any other concerning symptoms develop Prescriptions: Azithromycin [Zithromax] 250 mg PO DAILY #4 tab Ibuprofen [Motrin] 600 mg PO Q6H PRN #20 tab PRN Reason: pain/fever reduction Oseltamivir [Tamiflu] 75 mg PO BID #10 cap Referrals: Sue Up MD [Staff Provider] - Follow up with primary Forms: [employer] ([place]qi), WORK NOTE
[2017-09-28 19:14] VITALS: BP 127/69; PULSE 88; O2SAT 100
== END 2017-09-28 19:14 | disposition home or self-care (01) ==
LOC: ED 16:11
DX: J11.1 Influenza due to unidentified influenza virus with other respiratory manifestations (principal)